=== PATIENT | female | born 1945 | race Two or more races ===

== ENCOUNTER 2017-07-14 12:21 | Emergency (ER) | payer OTHER ==
[~2017-07-14] VITALS: Ht 152.4 cm; Wt 52.2 kg
--- NOTE | 2017-07-14 12:32 | NUR ---
MD MCGEE AT
--- NOTE | 2017-07-14 12:32 | NUR ---
PATIENT TO ED FOR POSSIBLE ANXIETY ATTACK DURING VISIT TO TO ED. PATIENT NOTED WITH HIGH BP 168/89. TOOK BP MEDS THIS MORNING, PT IN NO APPARENT DISTRESS. VSS
[2017-07-14] MEDS ORDERED: LORAZEPAM 1 MG TABLET ONE (12:46)
[2017-07-14] MEDS ORDERED: LORAZEPAM 1 MG TABLET PO ONE (13:00)
[2017-07-14 13:08] VITALS: BP 159/80
--- NOTE | 2017-07-14 13:08 | NUR ---
Patient discharged to home in stable condition. Written and verbal after care instructions given. Patient verbalizes understanding of instruction.
== END 2017-07-14 13:08 | disposition home or self-care (01) ==
LOC: ER 12:23
DX: F41.9 Anxiety disorder, unspecified (principal); M54.9 Dorsalgia, unspecified; G89.29 Other chronic pain; I10 Essential (primary) hypertension; J45.909 Unspecified asthma, uncomplicated
CPT/HCPCS: 93005; 99284; A4606; Z7610